=== PATIENT | male | born 1975 | race Caucasian/White ===

== ENCOUNTER 2020-11-16 13:12 | Emergency (ER) | payer BC, MEDICAID ==
[~2020-11-16] VITALS: Ht 177.8 cm; Wt 90.9 kg
[2020-11-16 13:52] LABS: BASOPHILS # (AUTO) 0.2 X10'3 (0-0.2); BASOPHILS % (AUTO) 1.3 % (0-1); EOSINOPHILS # (AUTO) 0.4 X10'3 (0-0.9); EOSINOPHILS % (AUTO) 2.8 % (0-6); HEMATOCRIT 46.5 % (42.0-52.0); LYMPHOCYTES # (AUTO) 2.4 X10'3 (1.1-4.8); LYMPHOCYTES % (AUTO) 18.5 % (21-51); MEAN CORPUSCULAR HEMOGLOBIN 33.2 PG (27.0-31.0); MEAN CORPUSCULAR HGB CONC 34.5 g/dL (33.0-36.5); MEAN CORPUSCULAR VOLUME 96.2 FL (78-98); MEAN PLATELET VOLUME 8.7 FL (7.4-10.4); MONOCYTES # (AUTO) 0.8 X10'3 (0-0.9); MONOCYTES % (AUTO) 6.2 % (2-12); NEUTROPHILS # (AUTO) 9.2 X10'3 (1.8-7.7); NEUTROPHILS % (AUTO) 71.2 % (42-75); PLATELET COUNT 245 X10'3 (140-440); RED BLOOD COUNT 4.83 X10'6 (4.70-6.10); RED CELL DISTRIBUTION WIDTH 12.8 % (11.5-14.5)
[2020-11-16 13:54] LABS: CLARITY,URINE CLEAR (Clear); COLOR,URINE STRAW (Yellow); GLUCOSE, URINE >=1000 mg/dl (Neg); KETONES,URINE NEGATIVE (Neg); LEUKOCYTE ESTERASE ,URINE NEGATIVE (Neg); NITRITES, URINE NEGATIVE (Neg); OCCULT BLOOD,URINE NEGATIVE (Neg); PROTEIN,URINE NEGATIVE (Neg); UA COLLECTION TYPE VOIDED; UROBILINOGEN,URINE 0.2 E.U/dL (0.2-1.0)
[2020-11-16 14:01] LABS: SQUAMOUS EPITHELIAL CELL,UR MODERATE /LPF (FEW)
[2020-11-16 14:02] LABS: BACTERIA,URINE FEW /HPF (Neg); RBC,URINE NONE SEEN /HPF (0-2); WBC,URINE 0-4 /HPF (0-4)
[2020-11-16 14:02] LABS: ALANINE AMINOTRANSFERASE 29 U/L (12-78); ALBUMIN/GLOBULIN RATIO 1.2 (1.1-1.5); ALKALINE PHOSPHATASE 63 IU/L (46-116); ANION GAP 10 (8-16); ASPARTATE AMINO TRANSFERASE 19 U/L (10-37); BILIRUBIN,TOTAL 0.9 MG/DL (0.1-1.0); BLOOD UREA NITROGEN 11 MG/DL (7-18); BUN/CREATININE RATIO 12.1 (5.4-32.0); CALCIUM 8.9 MG/DL (8.5-10.1); CHLORIDE 101 MMOL/L (99-107); CREATININE 0.91 MG/DL (0.60-1.10); GLUCOSE 256 MG/DL (70-104); POTASSIUM 3.8 MMOL/L (3.5-5.1); SODIUM 135 MMOL/L (135-145); TOTAL CARBON DIOXIDE 23.6 MMOL/L (24-32); TOTAL PROTEIN 7.4 G/DL (6.4-8.2); eGFR > 90 ML/MIN
[2020-11-16 14:07] LABS: URINE AMPHETAMINE SCREEN NEGATIVE (Neg); URINE BARBITUATE SCREEN NEGATIVE (Neg); URINE BENZODIAZEPINES SCREEN NEGATIVE (Neg); URINE CANNABINOID SCREEN POSITIVE (Neg); URINE COCAINE SCREEN NEGATIVE (Neg); URINE METHADONE SCREEN NEGATIVE (Neg); URINE OPIATE SCREEN NEGATIVE (Neg); URINE PHENCYCLIDINE SCREEN NEGATIVE (Neg)
[2020-11-16 14:14] LABS: ETHANOL < 0.010 GM/DL (0.0-0.010)
--- NOTE | 2020-11-16 14:53 | NUR ---
PACKET FAXED TO [facility]
--- NOTE | 2020-11-16 16:18 | NUR ---
PT IS ASKING FOR SOMETHING LIGHT TO EAT, PT PROVIDED WITH SOME YOGERT, APPLE JUICE AND MILK. [facility], MARINA CAMPUSH HERE FOR EVALUATION
[2020-11-16] MEDS ORDERED: OLANZapine 5mg rapidly disint. tablet PO ONE (18:10)
--- NOTE | 2020-11-16 22:00 | NUR ---
Assumed care of pt. Pt currently sleeping. Sitter outside room for observation
--- NOTE | 2020-11-17 07:15 | NUR ---
Pt ambulated independently to bed 23. Pt pleasant and cooperative. Security present.
--- NOTE | 2020-11-17 09:30 | NUR ---
Patient awake in his room reading the signs on the wall. Pt allowed 1:1 assessment to be completed. Pt denies S/I, H/I, A/VH. Pt talked about being on "his spiritual journey." Pt feels "there is no reason I should be here." "I see things differently and if I hadn't stopped to pee the citrix consultant never would have picked me up." Pt becomes tearful when he talked about his daughter "I am missing Father's Day." Pt was asked if he wanted to talk to his family pt stated "I have nothing to say to them." When pressed about why he is hear, pt begins to elevate. Pt concerned where is truck is and keeps asking how long he will be at "this hospital." Clinical Programmer reiterates his 72-hour hold, again pt begins to get irritable but lays on his bed. Pt ate 100% of his breakfast.
[2020-11-17] MEDS ORDERED: nicotine 21mg patch - 24 hr TD ONE (10:10)
--- NOTE | 2020-11-17 10:32 | NUR ---
Talking to mother "I just need to find myself." "I am doing what I'm told to get the hell of here." "I am just trying to do the greater good." Pt becomes tearful asking his daugher "Tell her to go home and leave [place], [place] is dangerous they will keep you locked up FOREVER!"
--- NOTE | 2020-11-17 10:33 | NUR ---
Patient on phone with patient, overheard pt saying "I just need to find myself." Pt said unsure if he was talking about daugher "Make sure she gets out of [place]." "[place] is dangerous and they will keep you locked up FOREVER!" "I thought I would share my story and instead this girl decided to keep me hear." Pt became tearful talking about his dauther.
--- NOTE | 2020-11-17 11:24 | NUR ---
Patients mother called Gricelda Mcgrath [phone]. She requests to be called when pt is discharged or transferred. She is unaware of any mental health diagnosis. States he was on Metformin for DMII and pt quit taking. Pt has a history of depression x 2 years with risky behaviors. Pt would drive fast at night without lights on. Mother states that when she called earlier that pt made paranoid statements asking her what his D.O.B was, where he was born, address, etc. When she answered correctly pt told her "oh okay you are my mommy."
--- NOTE | 2020-11-17 13:17 | NUR ---
Pt up in bed finishing his lunch. Covid test completed at this time, pt has been accepted to [facility]. Pt randomly asked designer writer "Do you know anything about the [employer]?" Director Of Cloud Services said no and pt said "okay" and finsihed eating. Pt has remained calm and cooperative.
[2020-11-17 14:21] VITALS: BP 113/73
--- NOTE | 2020-11-17 14:37 | NUR ---
Pt alert & oriented. Pt was discharged from overflow at 1436 and taken up to [facility]. Pt was calm and cooperative and left with personal belongs (1 pair of boxer briefs and cell phone.) Security escorted pt without issue.
[2020-11-17] MEDS ORDERED: NO HOME MEDS (17:45)
== END 2020-11-17 14:39 ==
LOC: EEVIPCON 13:15 → ER 13:15
DX: F23 Brief psychotic disorder (principal); Z20.822 Contact with and (suspected) exposure to COVID-19; F12.10 Cannabis abuse, uncomplicated; Z72.0 Tobacco use
CPT/HCPCS: 36415; 80053; 80305; 80320; 81001; 84443; 85025; 87635; 99285; C9803

== ENCOUNTER 2020-11-17 13:42 | Inpatient (IN) | payer BC, MEDICAID ==
[~2020-11-17] VITALS: Ht 177.8 cm; Wt 89.8 kg
[2020-11-17] MEDS ORDERED: magnesium hydroxide 30ml (MOM) UD suspension PO PRN (14:50)
[2020-11-17] MEDS ORDERED: LORazepam 1 MG tablet PO PRN (14:50)
[2020-11-17] MEDS ORDERED: acetaminophen 325mg tablet PO PRN ×2 (14:50)
[2020-11-17] MEDS ORDERED: traZODone 50mg tablet PO PRN (14:50)
[2020-11-17] MEDS ORDERED: loperamide 2mg capsule PO PRN (14:50)
[2020-11-17] MEDS ORDERED: mag hydrox/Alum hydrox/simeth 30ml oral suspension PO PRN (14:50)
[2020-11-17] MEDS ORDERED: nicotine 21mg patch - 24 hr TD ONE (16:05)
--- NOTE | 2020-11-17 17:08 | NUR ---
ADMIT NOTE Pt admitted to the unit on a 5150 at 1440 for GD from EDOF, escorted by security and NA in a wheelchair. Safety check completed and belongings inventoried. Pt was pulled over by [facility] for reckless driving/endangering others, traveling at [address] free[address] and passing on the shoulder. Pt reported to law enforcement that he does have a hx of mental health disorders. He was wearing only his underwear, had urinated on himself, reported that he is on a "spiritual journey", and had travelled to [place] and [place]. He was not able to provide a plan for food, stating he gave all his food away to other people more in need. [place] with his mother and 15 y/o daughter. Presents with grandiose delusions, but cooperative with admit process. Zyprexa 10 mg offered in the ED, but patient refused. Medical Hx: Diabetes II, not taking Metformin Tox + Cannabinoids
[2020-11-17] MEDS ORDERED: NO HOME MEDS (17:45)
[2020-11-17 20:05] VITALS: BP 127/89
[2020-11-17] MEDS: NICOTINE POLACRILEX 2 MG LOZENGE BC PRN (21:32)
[2020-11-17] MEDS: olanzapine 10mg tablet PO SCH (22:39)
--- NOTE | 2020-11-18 01:53 | NUR ---
Nursing Progress Note: Legal hold: 5150 Client on voluntary/involuntary status for GD. Report received from nurse with use of SBAR[]. Why are they here: Pt was pulled over by [facility] for reckless driving/endangering others, traveling at [address] free[address] and passing on the shoulder. Pt reported to law enforcement that he does have a hx of mental health disorders. He was wearing only his underwear, had urinated on himself, reported that he is on a "spiritual journey", and had travelled to [place] and [place]. He was not able to provide a plan for food, stating he gave all his food away to other people more in need. Assessment What has happened this shift: Pt up on in group room watching TV with other pts. Pt is pleasant and very friendly with other pts to the point of being invasive. Pt thoughts disorganized at times. Pt unable to tell story of how he ended up on the unit in a coherent way and in chronological order. He did confirm the P's story about his reckless driving. He said he was being led on a mission by God. Pt said he had been admitted before to a [facility] hospital. His description of why he was admitted was disjointed and not understandable. Pt denies he has ever been on any medications. Pt hesitant about taking medications although he had asked for something for sleep. After some discussion he took routine Zyprexa and PRN Trazodone. S/I, H/I:denies A/VH: denies Sleep:asleep at this time ADL's:independent Group attendance: NA Were meds taken: yes Any med S/E no Mental Status Exam Appearance: Well groomed Eye contact: Direct Behavior: Cooperative Speech: Normal rate and rhythm Mood: Hyper Friendly Affect: Bright Thought process: Disorganized at times Thought Content: Wants to go home to [place] Cognition: WNL Insight: Poor Judgment: Poor Interventions PRN's used: Trazodone Therapeutic interventions: 1:1 assessment, therapeutic conversation, active listening, ensured contract for safety, behavior monitoring and intervention as needed, distraction, redirection, reality orientation, reassurance that pt is safe here, Q 15 minute safety checks. Restraints/seclusion/emergency medication: None Justification of Continued Inpatient Treatment: Pt needs crisis interruption and medication management and monitoring in a safe and therapeutic environment.
[2020-11-18 07:40] VITALS: BP 120/73
[2020-11-18 09:38] LABS: CHOL/HDL RATIO 4.1 (0.00-4.99); CHOLESTEROL 159 MG/DL (0-200); HDL CHOLESTEROL 39 MG/DL (35-60); LDL CHOLESTEROL 101 MG/DL (50-100); TRIGLYCERIDES 70 MG/DL (20-135)
[2020-11-18] MEDS: nicotine 21mg patch - 24 hr TD SCH (09:44)
--- NOTE | 2020-11-18 09:47 | NUR ---
DM/Malnutrition Consults: Pt admit DX 5150 and danger to self per EMR. Hx T2DM A1C 7.0 this admit though not appropriate for DM Ed at this time given DX. Pt has normal strength, no edema/wounds, appears WD/WN per ER note, and PO 100% first carb controlled meal this admit. Does not meet minimum malnutrition criteria at this time. Will monitor for further malnutrition criteria this admit. Addendum: 11/18/20 at [address] Amended: Links added.
--- NOTE | 2020-11-18 13:36 | NUR ---
Pt. attended group today. The group today was about Anxiety, they were asked to identify the natural and silent triggers they have experienced. The second half of group was about what coping skills we can utilize when we are anxious. Pt. was alert and oriented X 4. His demeanor was friendly, he sat next to a peer and proceeded to talk with her a lot during the group. This Knot Bumper had to ask them both to stop talking on numerous occasions as it was distracting for the group. Pt. readily shared his triggers and his thoughts about anxiety as well as the coping mechanisms he utilizes when he becomes anxious. He reported he will go to his car and go for a drive or listen to music. A few times he got off topic and starting perseverating on the fact that he needs to get back home because of all the things he needs to do back there. During these times his tone would change to a more angry and aggressive presentation but he would reign it back in. He would recognize when he was sharing too much and stop himself and stated, "Oh I better let other people talk too." He mentioned many times how he wants to get home kate. His thought process was scattered and his thought content appeared WNL during the group time. Tayla Thompson LCSW
--- NOTE | 2020-11-18 17:31 | NUR ---
Nursing Progress Note: Legal hold: 5150 Client on voluntary/involuntary status for GD. Report received from nurse with use of SBAR[]. Why are they here: Pt was pulled over by P for reckless driving/endangering others, traveling at [address] free[address] and passing on the shoulder. Pt reported to law enforcement that he does have a hx of mental health disorders. He was wearing only his underwear, had urinated on himself, reported that he is on a "spiritual journey", and had travelled to [place] and [place]. He was not able to provide a plan for food, stating he gave all his food away to other people more in need. Assessment What has happened this shift: Pt up and visible all shift. Though pt has been asking all shift to see the doctor with the thought that he would be discharged, he remained positive after meeting with the PA and finding out he is not discharging. Pt is unwilling to take medications at this time and he is not exhibiting any bx to warrant medications against his will. Pt denies suicidal and homicidal thoughts and denies hallucinations. Pt does voice some delusional thought content while talking about circumstances around his admission. S/I, H/I:denies A/VH: denies Sleep:asleep at this time ADL's:independent Group attendance: NA Were meds taken: yes Any med S/E no Mental Status Exam Appearance: Well groomed Eye contact: Direct Behavior: Cooperative Speech: Normal rate and rhythm Mood: Hyper Friendly Affect: Bright Thought process: Disorganized at times Thought Content: Wants to go home to [place] Cognition: WNL Insight: Poor Judgment: Poor Interventions PRN's used: Therapeutic interventions: 1:1 assessment, therapeutic conversation, active listening, ensured contract for safety, behavior monitoring and intervention as needed, distraction, redirection, reality orientation, reassurance that pt is safe here, Q 15 minute safety checks. Restraints/seclusion/emergency medication: None Justification of Continued Inpatient Treatment: Pt needs crisis interruption and medication management and monitoring in a safe and therapeutic environment.
[2020-11-18] MEDS: metFORMIN 500mg tablet PO SCH (17:56)
[2020-11-18] MEDS: NICOTINE POLACRILEX 2 MG LOZENGE BC PRN (18:42)
[2020-11-18 20:27] VITALS: BP 133/84
[2020-11-18] MEDS: olanzapine 10mg tablet PO SCH (20:41)
--- NOTE | 2020-11-19 00:21 | NUR ---
Nursing Progress Note: Legal hold: 5150 Client on voluntary/involuntary status for GD. Report received from nurse with use of SBAR[]. Why are they here: Pt was pulled over by P for reckless driving/endangering others, traveling at [address] free[address] and passing on the shoulder. Pt reported to law enforcement that he does have a hx of mental health disorders. He was wearing only his underwear, had urinated on himself, reported that he is on a "spiritual journey", and had travelled to [place] and [place]. He was not able to provide a plan for food, stating he gave all his food away to other people more in need. Assessment What has happened this shift: Pt up and visible all shift sitting in group room watching Tv with peers Pt is unwilling to take medications at this time stating it made me feel strange. Pt denies suicidal and homicidal thoughts and denies hallucinations. Pt does voice some delusional thought content while talking about circumstances around his admission. S/I, H/I:denies A/VH: denies Sleep:See sleep hrs ADL's:independent Group attendance: NA Were meds taken: yes Any med S/E no Mental Status Exam Appearance: Well groomed Eye contact: Direct Behavior: Cooperative Speech: Normal rate and rhythm Mood: Hyper Friendly Affect: Bright Thought process: Disorganized at times Thought Content: Wants to go home to [place] Cognition: WNL Insight: Poor Judgment: Poor Interventions PRN's used: Therapeutic interventions: 1:1 assessment, therapeutic conversation, active listening, ensured contract for safety, behavior monitoring and intervention as needed, distraction, redirection, reality orientation, reassurance that pt is safe here, Q 15 minute safety checks. Restraints/seclusion/emergency medication: None Justification of Continued Inpatient Treatment: Pt needs crisis interruption and medication management and monitoring in a safe and therapeutic environment.
[2020-11-19 07:50] VITALS: BP 136/88
[2020-11-19] MEDS: metFORMIN 500mg tablet PO SCH ×2 (07:50→17:46)
[2020-11-19] MEDS: lisinopril 10 MG tablet PO SCH (07:51)
[2020-11-19] MEDS: nicotine 21mg patch - 24 hr TD SCH (08:00)
[2020-11-19] MEDS: NICOTINE POLACRILEX 2 MG LOZENGE BC PRN ×4 (08:17→19:51)
--- NOTE | 2020-11-19 10:42 | NUR ---
PSYCHOSOCIAL ASSESSMENT Mian is a 45 y/o male who was placed on 5150 for grave disability after he was contacted by [facility] due to numerous reports of reckless driving with reported speed of 100 mph.When pulled over by [facility] he was wearing only his underwear and had urinated on himself. In the ED he presented as agitated, psychomotor agitation, hyperverbal and labile mood. He had reported he had given away his food to others in need. He was unable to formulate a viable plan for food, clothing, or alf. Mian still remains hyperverbal with pressured speech. He is quite grandiose and talked about his plans for a business and that he wants to be on the ballot for [facility]. He denied any current SI or HI. He denied any suicide attempts. He had little insight about his reckless driving. He reported he was hospitalized for a couple hours about 10 years ago when his daughter was taken by CPS. He reported he was diagnosed with bipolar at that time, however, he does not believe that to be true. He indicated he has had run ins with law enforcement in the past due to reckless driving and a DUI in college. Mian is focused on discharging and returning home in [place]. His mother and 14 y/o daughter live with him. 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 Gricelda denied any family history of mental health issues. MSE: A/O: oriented x's 4 Appearance: decent hygiene, appears much older than stated age Behavior: cooperative Speech: rapid, pressured Mood: elevated Affect: labile Thought Process: grandiose Thought Content: focused on getting his truck and returning home PLAN: Steam Hoist Operator will assist with discharge planning needs. BROOK Zelaya Addendum: 11/19/20 at 1045 by Cha Rivera Amended: Links added.
--- NOTE | 2020-11-19 13:38 | NUR ---
Pt. attended group today. Each pt. scaled their mood and anxiety level today to practice scaling. We discussed how trauma/emotion remains in your body and how the brain send messages to the amygdala which can cause a flight/fight response. This Parts Counter Specialist led a Visualization technique called Ride the Wave to let go of negative emotions. Pt's mood was elevated with a congruent affect. His thoughts tended to be on a grandiose scale reporting that he is feeling very happy, hopeful and even ecstatic about his future plans. 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 He engaged in the discussion and seemed to enjoy socializing with his peers. He struggled with interjecting at times into others process while they were talking. He would either try to give advice inappropriately or ask very personal questions about their situation. One of his peers did get frustrated and told him not to interrupt them at which point he decided to leave the group early. He was alert and oriented X 4. His presentation was high energy and bit restless, he is very much looking forward to getting out of [facility]. Tayla Thompson, MORTUARY TECHNICIAN
--- NOTE | 2020-11-19 16:51 | NUR ---
Nursing Progress Note: Legal hold: 5150 Client on voluntary/involuntary status for GD. Report received from nurse with use of SBAR[]. Why are they here: Pt was pulled over by [facility] for reckless driving/endangering others, traveling at [address] free[address] and passing on the shoulder. Pt reported to law enforcement that he does have a hx of mental health disorders. He was wearing only his underwear, had urinated on himself, reported that he is on a "spiritual journey", and had travelled to [place] and [place]. He was not able to provide a plan for food, stating he gave all his food away to other people more in need. Assessment What has happened this shift: Pt up and visible all shift. Pt visiting appropriately with peers and staff. Pt denies s.i./h.i. and denies hallucinations. Pt overheard on the phone in the afternoon, "they tried to label me manic, but I say "no" "I say it's excessive love and excessive passion" Pt bx remained appropriate today. S/I, H/I:denies A/VH: denies Sleep:asleep at this time ADL's:independent Group attendance: NA Were meds taken: yes Any med S/E no Mental Status Exam Appearance: Well groomed Eye contact: Direct Behavior: Cooperative Speech: Normal rate and rhythm Mood: Hyper Friendly Affect: Bright Thought process: Disorganized at times Thought Content: Wants to go home to [place] Cognition: WNL Insight: Poor Judgment: Poor Interventions PRN's used: nicotine lozenge Therapeutic interventions: 1:1 assessment, therapeutic conversation, active listening, ensured contract for safety, behavior monitoring and intervention as needed, distraction, redirection, reality orientation, reassurance that pt is safe here, Q 15 minute safety checks. Restraints/seclusion/emergency medication: None Justification of Continued Inpatient Treatment: Pt needs crisis interruption and medication management and monitoring in a safe and therapeutic environment.
[2020-11-19 20:43] VITALS: BP 109/69
[2020-11-19] MEDS: olanzapine 10mg tablet PO SCH (21:00)
--- NOTE | 2020-11-20 | NUR ---
Nursing Progress Note: Legal hold: 5150 Client on voluntary/involuntary status for GD. Report received from nurse with use of SBAR[]. Why are they here: Pt was pulled over by [facility] for reckless driving/endangering others, traveling at [address] free[address] and passing on the shoulder. Pt reported to law enforcement that he does have a hx of mental health disorders. He was wearing only his underwear, had urinated on himself, reported that he is on a "spiritual journey", and had travelled to [place] and [place]. He was not able to provide a plan for food, stating he gave all his food away to other people more in need. Assessment What has happened this shift: Pt up and visible this shift. Pt visiting appropriately with peers and staff. Pt denies s.i./h.i. and denies hallucinations. Pt continues ro refuse medication. Pt bx remained appropriate today. S/I, H/I:denies A/VH: denies Sleep:See sleep hrs. ADL's:independent Group attendance: NA Were meds taken: yes Any med S/E no Mental Status Exam Appearance: Well groomed Eye contact: Direct Behavior: Cooperative Speech: Normal rate and rhythm Mood: Hyper Friendly Affect: Bright Thought process: Disorganized at times Thought Content: Wants to go home to [place] Cognition: WNL Insight: Poor Judgment: Poor Interventions PRN's used: nicotine lozenge Therapeutic interventions: 1:1 assessment, therapeutic conversation, active listening, ensured contract for safety, behavior monitoring and intervention as needed, distraction, redirection, reality orientation, reassurance that pt is safe here, Q 15 minute safety checks. Restraints/seclusion/emergency medication: None Justification of Continued Inpatient Treatment: Pt needs crisis interruption and medication management and monitoring in a safe and therapeutic environment.
[2020-11-20] MEDS: metFORMIN 500mg tablet PO SCH (07:11)
[2020-11-20] MEDS: lisinopril 10 MG tablet PO SCH (07:14)
[2020-11-20] MEDS: NICOTINE POLACRILEX 2 MG LOZENGE BC PRN (07:56)
[2020-11-20] MEDS: nicotine 21mg patch - 24 hr TD SCH (08:00)
[2020-11-20 09:10] VITALS: BP 120/87
[2020-11-20] MEDS ORDERED: METF-950 PO (12:23)
[2020-11-20] MEDS ORDERED: LISI10TA27 PO (12:23)
--- NOTE | 2020-11-20 13:25 | NUR ---
Discharge note: Patient Discharged @ 1315, Girlfriend is picking up patient and driving him to his car. Patient is returning to his home in [place]. Patient received discharge instructions and voiced understanding. Original RX went with patient he will fill them on his trip home. All belonging returned to patient.
== END 2020-11-20 13:15 | disposition home or self-care (01) | DRG 885 ==
LOC: ADULT MH 13:42
PROVIDERS: ADMIT Psychiatry & Neurology Psychiatry; ATTEND Psychiatry & Neurology Psychiatry
DX: F31.9 Bipolar disorder, unspecified (principal); E11.9 Type 2 diabetes mellitus without complications; F12.90 Cannabis use, unspecified, uncomplicated; F17.210 Nicotine dependence, cigarettes, uncomplicated; R45.86 Emotional lability; Z79.84 Long term (current) use of oral hypoglycemic drugs; Z71.51 Drug abuse counseling and surveillance of drug abuser; Z71.6 Tobacco abuse counseling
CPT/HCPCS: 36415; 80061; 82948; 83036; 87081